=== PATIENT | female | born 1960 | race Caucasian/White ===

== ENCOUNTER 2019-06-01 07:35 | Inpatient (IN) | payer OTHER ==
[2019-06-01 08:26] LABS: ADD MAN DIFF? NO
[2019-06-01 08:28] LABS: WHITE BLOOD COUNT 6.2 10^3/ul (4.8-10.8)
[2019-06-01 08:28] LABS: BASOPHILS % 0.5 % (0.0-2.0); EOSINOPHILS # 0.1 10^3/ul (0.0-0.5); EOSINOPHILS % 2.3 % (0.0-7.0); HEMATOCRIT 42.5 % (37.0-47.0); HEMOGLOBIN 14.3 g/dl (12.0-16.0); LYMPHOCYTES # 2.4 10^3/ul (0.8-2.9); LYMPHOCYTES % 38.1 % (15.0-51.0); MEAN CORPUSCULAR HEMOGLOBIN 30.6 pg (29.0-33.0); MEAN CORPUSCULAR HGB CONC 33.6 g/dl (32.0-37.0); MEAN PLATELET VOLUME 8.7 fl (7.4-10.4); MONOCYTE # 0.5 10^3/ul (0.3-0.9); MONOCYTES % 8.8 % (0.0-11.0); NEUTROPHIL # 3.1 10^3/ul (1.6-7.5); NEUTROPHILS % 50.1 % (39.0-77.0); PLATELET COUNT 310 10^3/UL (140-415); RED BLOOD COUNT 4.67 10^6/ul (4.20-5.40); RED CELL DISTRIBUTION WIDTH 12.9 % (11.5-14.5)
[2019-06-01 08:47] LABS: INR 0.95; PROTIME 12.8 Sec (11.9-14.9)
[2019-06-01 08:48] LABS: ANION GAP 8 (5-13); BLOOD UREA NITROGEN 14 mg/dl (7-20); CARBON DIOXIDE 28 mmol/L (21-31); CHLORIDE 107 mmol/L (97-110); CHOL/HDL RATIO 7.6 RATIO; CHOLESTEROL 222 mg/dl (100-200); CREATININE 0.93 mg/dl (0.44-1.00); Estimated GFR > 60 mL/min (>60); GLUCOSE 96 mg/dl (70-220); HDL CHOLESTEROL 29 mg/dl (37-92); LDL CHOLESTEROL,CALCULATED 160 mg/dl; POTASSIUM 4.3 mmol/L (3.5-5.1); SODIUM 143 mmol/L (135-144); TRIGLYCERIDES 163 mg/dl (0-149)
[2019-06-01 08:50] LABS: CALCIUM 10.3 mg/dl (8.4-10.2)
[2019-06-01] MEDS ORDERED: DIAZEPAM 5 MG TAB PO (09:06)
[2019-06-01] MEDS ORDERED: FAMOTIDINE 20 MG TAB PO (09:07)
[2019-06-01] MEDS ORDERED: DIPHENHYDRAMINE 50 MG CAP PO (09:07)
[2019-06-01] MEDS ORDERED: SOD CHLORIDE 0.45% 1,000 ML IV (09:30)
[2019-06-01] MEDS ORDERED: FENTAnyl 50 MCG/ML VIAL (09:31)
[2019-06-01] MEDS ORDERED: IODIXANOL LOCM 100 ML BTL (09:31)
[2019-06-01] MEDS ORDERED: MIDAZOLAM 1 MG/ML 2 ML INJ (09:31)
[2019-06-01] MEDS ORDERED: HEPARIN 1000 UNITS/ML 10 ML INJ (09:31)
[2019-06-01] MEDS ORDERED: LIDOCAINE 1% (MDV) 20 ML INJ (09:31)
[2019-06-01] MEDS ORDERED: VERAPAMIL 5 MG INJ (09:32)
[2019-06-01] MEDS ORDERED: BIVALIRUDIN 250MG /NS 50 ML 50 ML IVPB (11:01)
[2019-06-01] MEDS ORDERED: CLOPIDOGREL 300 MG TAB (11:06)
[2019-06-01] MEDS ORDERED: ASPIRIN 325 MG TAB (11:06)
[2019-06-01] MEDS ORDERED: OXYCODONE/ACETAMINOPHEN (5/325) TAB PO (11:30)
[2019-06-01] MEDS ORDERED: ZOLPIDEM 5 MG TAB PO (11:30)
[2019-06-01] MEDS ORDERED: morphine 2 MG INJ IV (11:30)
[2019-06-01] MEDS ORDERED: AL HYDROX/MG HYDROX/SIMETH 30 ML CUP PO (11:30)
[2019-06-01] MEDS: SOD CHLORIDE 0.9% 1,000 ML IV (12:13)
[2019-06-01] MEDS: ONDANSETRON 4 MG INJ IV (12:42)
[2019-06-01 14:16] LABS: HEMOGLOBIN A1C 5.4 % (0-5.9)
[2019-06-01] MEDS: ACETAMINOPHEN 325 MG TAB PO (16:34)
[2019-06-01] MEDS: MAGNESIUM OXIDE 400 MG TAB PO (21:51)
[2019-06-01] MEDS: TOPIRAMATE 25 MG TAB PO (21:51)
[2019-06-02 06:21] LABS: ADD MAN DIFF? NO
[2019-06-02 06:28] LABS: BASOPHIL # 0.1 10^3/ul (0.0-0.1); BASOPHILS % 0.9 % (0.0-2.0); EOSINOPHILS # 0.2 10^3/ul (0.0-0.5); EOSINOPHILS % 2.6 % (0.0-7.0); HEMATOCRIT 37.7 % (37.0-47.0); HEMOGLOBIN 12.7 g/dl (12.0-16.0); LYMPHOCYTES # 1.9 10^3/ul (0.8-2.9); LYMPHOCYTES % 33.9 % (15.0-51.0); MEAN CORPUSCULAR HEMOGLOBIN 31.1 pg (29.0-33.0); MEAN CORPUSCULAR HGB CONC 33.7 g/dl (32.0-37.0); MEAN CORPUSCULAR VOLUME 92.2 fl (82.0-101.0); MEAN PLATELET VOLUME 9.3 fl (7.4-10.4); MONOCYTE # 0.5 10^3/ul (0.3-0.9); MONOCYTES % 8.6 % (0.0-11.0); NEUTROPHIL # 3.1 10^3/ul (1.6-7.5); NEUTROPHILS % 53.7 % (39.0-77.0); PLATELET COUNT 275 10^3/UL (140-415); RED BLOOD COUNT 4.09 10^6/ul (4.20-5.40); RED CELL DISTRIBUTION WIDTH 13.1 % (11.5-14.5)
[2019-06-02 06:28] LABS: WHITE BLOOD COUNT 5.7 10^3/ul (4.8-10.8)
[2019-06-02 06:57] LABS: PHOSPHORUS 4.7 mg/dl (2.5-4.9)
[2019-06-02 06:57] LABS: MAGNESIUM 2.1 mg/dl (1.7-2.5)
[2019-06-02 07:08] LABS: ANION GAP 6 (5-13); BLOOD UREA NITROGEN 16 mg/dl (7-20); CALCIUM 9.3 mg/dl (8.4-10.2); CARBON DIOXIDE 25 mmol/L (21-31); CHLORIDE 110 mmol/L (97-110); CREATININE 0.99 mg/dl (0.44-1.00); Estimated GFR 58 mL/min (>60); GLUCOSE 96 mg/dl (70-220); POTASSIUM 4.1 mmol/L (3.5-5.1); SODIUM 141 mmol/L (135-144)
[2019-06-02] MEDS: CITALOPRAM 20 MG TAB PO (09:00)
[2019-06-02] MEDS: MAGNESIUM OXIDE 400 MG TAB PO (09:49)
[2019-06-02] MEDS: ASPIRIN (EC) 81 MG TAB PO (09:49)
[2019-06-02] MEDS: LEVOTHYROXINE 88 MCG TAB PO (09:49)
[2019-06-02] MEDS: CLOPIDOGREL 75 MG TAB PO (09:49)
[2019-06-02] MEDS: TOPIRAMATE 25 MG TAB PO (09:49)
== END 2019-06-02 11:20 | disposition home or self-care (01) | DRG 247 ==
LOC: SDS 07:35 → ICU 11:40 → SDS 14:11 → ICU 14:11
PROC: 027034Z Dilation of Coronary Artery, One Artery with Drug-eluting Intraluminal Device, Percutaneous Approach (ICD-10-PCS; principal; 2019-06-01 09:20)
PROC: 4A023N7 Measurement of Cardiac Sampling and Pressure, Left Heart, Percutaneous Approach (ICD-10-PCS; 2019-06-01 09:20)
PROC: B211YZZ Fluoroscopy of Multiple Coronary Arteries using Other Contrast (ICD-10-PCS; 2019-06-01 09:20)
DX: I25.119 Atherosclerotic heart disease of native coronary artery with unspecified angina pectoris (principal); E11.9 Type 2 diabetes mellitus without complications; E78.5 Hyperlipidemia, unspecified; E03.9 Hypothyroidism, unspecified; F41.9 Anxiety disorder, unspecified; F32.9 Major depressive disorder, single episode, unspecified; I65.23 Occlusion and stenosis of bilateral carotid arteries; Z79.84 Long term (current) use of oral hypoglycemic drugs
CPT/HCPCS: 71045; 80048; 80061; 82962; 83036; 83735; 84100; 85025; 85610; 85730; 87081; 92928; 93005; 93458